=== PATIENT | female | born 1980 | race Caucasian/White ===

== ENCOUNTER → 2016-02-29 | Outpatient (CLI) | payer MEDICAID ==
[~2016-02-29] MED LIST: ADIPEX-P37.5 MG PO; BUMETANIDE 1MG T1 MG PO; BUSPIRONE 5MG TA5 MG PO; COLESTIPOL1 GM PO; HYDROXYZINE HCL25 MG PO; KLOR-CON M1010 MEQ PO; LANSOPRAZOLE30 MG PO; LISINOPRIL/HCTZ1 TA3 PO; MOBIC15 MG PO; NEURONTIN800 MG PO; PAXIL20 MG PO; PERCOCET 650 MG1 TAB PO; PHENTERMINE37.5 MG PO; PROTONIX40 MG PO; TOPIRAMATE 100100 M1 PO; TYLENOL WITH CO1 TA1 PO; VENTOLIN H0.09 MG/AC IH; WELLBUTRIN XL300 MG PO
[2016-02-29 18:01] LABS: LYMPH % 42.3 % (10-50.0)
[2016-02-29 18:40] LABS: HEMOGLOBIN 13.7 g/dL (12.2-16.2)
[2016-02-29 19:37] LABS: BUN 19 mg/dL (7-18)
[2016-02-29 19:38] LABS: GFR (ESTIMATED) 112 ML/MIN (59-)
[2016-03-02 16:39] LABS: HBsAg Screen Negative (Negative); Hep A Ab, IgM Negative (Negative); Hep B Core Ab, IgM Negative (Negative); Hep C Virus Ab 0.2 (0.0-0.9)
[2016-03-03 04:38] LABS: HIV Screen 4th Generation wRfx Non Reactive (Non Reactive)
== END ==
LOC: LAB 16:18
PROVIDERS: Nurse Practitioner Family
DX: I10 Essential (primary) hypertension (principal); Z00.00 Encounter for general adult medical examination without abnormal findings
CPT/HCPCS: G0432

== ENCOUNTER → 2016-03-21 | Outpatient (CLI) | payer MEDICAID ==
[2016-03-21 18:01] LABS: AMPHETAMINES/METAMPHETAMINES NEGATIVE ng/mL (<1000)
== END ==
LOC: LAB 16:09
PROVIDERS: Nurse Practitioner Family
DX: E66.01 Morbid (severe) obesity due to excess calories (principal)